=== PATIENT | male | born 1940 | race Caucasian/White ===

== ENCOUNTER 2017-07-26 09:25 | Inpatient (IN) | payer MEDICARE, MEDICAID ==
[2017-07-26] VITALS (11 sets, daily range): BP systolic 113–147; BP diastolic 58–73; PULSE 53–64; RESP 15–18; TEMP 97.5–98.9; O2SAT 94–99
[~2017-07-26] VITALS: Ht 180.3 cm; Wt 91.6 kg
[~2017-07-26 09:25] MED LIST: ASPI81TA81 PO; CALTTAB PO; FLUO60TA PO; GABA600T PO; LEVA500T PO; LOVA20TA PO; METO10TA PO; MSIR30 PO; NIAC250T3 PO; NIFE30TA8 PO; OXYB5TAB8 PO; PRIL20CA9 PO; VENTAER INH; ZENP1000 PO
[2017-07-26] MEDS ORDERED: SODIUM CHLORIDE 0.9% FLUSH 10 ML FLUSH IVF PRN (09:45)
[2017-07-26 10:17] LABS: ALBUMIN 3.1 GM/DL (3.4-5.0); AST (GOT) 12 U/L (15-37); BICARBONATE 22.9 MEQ/L (21.0-32.0); BLOOD UREA NITROGEN 38 MG/DL (7-18); CALCIUM 8.9 MG/DL (8.5-10.1); CHLORIDE 107 MEQ/L (98-107); CREATININE 1.27 MG/DL (0.60-1.30); GLOMERULAR FILTRATION RATE 55 ML/MIN (>89); GLUCOSE,RANDOM 120 MG/DL (74-106); SODIUM (NA) 140 MEQ/L (136-145)
[2017-07-26 10:18] LABS: ALT (GPT) 20 U/L (12-78)
[2017-07-26 10:20] LABS: ALKALINE PHOSPHATASE 84 U/L (45-117); TOTAL BILIRUBIN ADULT 0.2 MG/DL (0.2-1.0); TOTAL PROTEIN 6.7 GM/DL (6.4-8.2)
[2017-07-26 10:21] LABS: PROTHROMBIN TIME - PATIENT 10.6 SEC (9.8-11.6)
[2017-07-26 10:34] LABS: AUTOMATED NEUTROPHIL # 3.2 TH/MM3 (1.8-7.7); BASOPHIL # 0.1 TH/MM3 (0-0.2); BASOPHIL % 1.2 % (0.0-2.0); EOSINOPHIL # 0.1 TH/MM3 (0-0.4); EOSINOPHIL % 1.9 % (0.0-4.0); HEMATOCRIT 23.7 % (39.0-51.0); HEMOGLOBIN 7.5 GM/DL (13.0-17.0); LYMPH % 24.6 % (9.0-44.0); LYMPHOCYTE # 1.2 TH/MM3 (1.0-4.8); MEAN CELL VOLUME 74.6 FL (80.0-100.0); MEAN CORPUSCULAR HEMOGLOBIN 23.5 PG (27.0-34.0); MEAN CORPUSCULAR HGB CONC 31.6 % (32.0-36.0); MEAN PLATELET VOLUME 9.3 FL (7.0-11.0); MONO % 9.3 % (0.0-8.0); MONOCYTE # 0.5 TH/MM3 (0-0.9); PLATELET COUNT 221 TH/MM3 (150-450); RED BLOOD COUNT 3.17 MIL/MM3 (4.50-5.90); RED CELL DISTRIBUTION WIDTH 17.3 % (11.6-17.2); WHITE BLOOD COUNT 5.1 TH/MM3 (4.0-11.0)
[2017-07-26] MEDS ORDERED: SODIUM CHLOR 0.9% 250 ML INJ 250 ML IV ONE (11:30)
--- NOTE | 2017-07-26 11:39 | EKG ---
Date Performed: 07/26/2017 Time Performed: 09:38:48 PTAGE: 77 years EKG: SINUS BRADYCARDIA RIGHT BUNDLE BRANCH BLOCK Since the previous tracing, no significant russell ge noted ABNORMAL ECG PREVIOUS TRACING : 12/16/2015 @17.58 DOCTOR: Brodie Andrews Interpretating Date/Time 07/26/2017 16:04:12
--- NOTE | 2017-07-26 11:43 | PD ---
HPI Chief Complaint: Abdominal Pain Time Seen by Provider: 09:35 Travel History International Travel<30 days: No Contact w/Intl Traveler<30days: No Traveled to known affect area: No History of Present Illness HPI This is a 77-year-old male with history of dementia, acute kidney injury, diabetes mellitus, prostate cancer, pancreatic neoplasm, who presents today with history that he was told to come here for transfusion. Apparently he had blood work done by his primary care physician who we cannot recall her name, who told him that he needed to come here to have a blood transfusion. Apparently he had 2 separate blood draws which confirmed that he was anemic. He was unsure of the number. He states that he has been having dark stools. When asked if he had provided a stool sample or had a rectal examination, patient states he refused because he did not want to know if there was blood in there or not. When asked if he would provide us with a sample he stated now. He is amenable to transfusion. He states that he knows that he could possibly have something that is bad however does not wish to know about it at this point. PFSH Past Medical History Hx Anticoagulant Therapy: Yes (ASPRIN 81MG DAILY) Alzheimer's Disease: Yes Arthritis: Yes Asthma: No Anxiety: Yes Depression: Yes Cancer: Yes (PROSTATE) Cardiovascular Problems: Yes High Cholesterol: Yes Chemotherapy: Yes COPD: No Cerebrovascular Accident: Yes Diabetes: Yes Patient Takes Glucophage: No Diminished Hearing: Yes (TIMBI-SHA SHOSHONE BOTH EARS) Endocrine: No Gastrointestinal Disorders: Yes (ABD HERNIA X 2 AREA'S NO SURGERY) GERD: Yes Genitourinary: Yes Hiatal Hernia: Yes (NO SURGERY) Hypertension: Yes Musculoskeletal: Yes (R LEG PAIN/ WALKER TO AMBULATE AT HOME) Neurologic: Yes (NEUROPATHY) Psychiatric: Yes Sleep Apnea: No Thyroid Disease: No Past Surgical History Abdominal Surgery: Yes (EXPLOR LAP) Cholecystectomy: Yes Genitourinary Surgery: Yes (PROSTATE REMOVED R/T CANCER) Prostatectomy: Yes (R/T CA) Other Surgery: Yes (SPINTER MUSCLE RELACED) Social History Alcohol Use: No Tobacco Use: No (quit 50 years ago) Substance Use: No Allergies-Medications (Allergen,Severity, Reaction): Coded Allergies: shrimp (Unverified Allergy, Severe, EYES SWELL, 10/02/16) strawberry (Unverified Allergy, Severe, EYES SWELLING, 10/02/16) Reported Meds & Prescriptions Reported Meds & Active Scripts Active Ventolin Hfa 18 GM Inh (Albuterol Sulfate) 90 Mcg/Act Aer 2 Puff INH Q4H PRN Levaquin (Levofloxacin) 500 Mg Tab 500 Mg PO DAILY 7 Days Nifedipine ER 24 HR (Nifedipine) 30 Mg Tab 30 Mg PO BID Metoclopramide (Metoclopramide HCl) 10 Mg Tab 10 Mg PO ACHS Reported Aspir-81 (Aspirin) 81 Mg Tabdr 81 Mg PO HS Morphine IR (Morphine Sulfate) 30 Mg Tab 30 Mg PO TID Caltrate 600+D (Calcium Carbonate-Cholecalciferol) 600-800 Mg-Unit Tab 1 Tab PO DAILY Zenpep (Pancrelipase) 10,000-34,000-55,000 Units Cap 2 Cap PO TIDPC Gabapentin 600 Mg Tab 600 Mg PO BID Fluoxetine (Fluoxetine HCl) 60 Mg Tab 60 Mg PO DAILY Prilosec (Omeprazole) 20 Mg Cap 20 Mg PO DAILY Ditropan (Oxybutynin Chloride) 5 Mg Tab 5 Mg PO HS Niacin 250 Mg Tab 250 Mg PO HS Lovastatin 20 Mg Tab 20 Mg PO DAILY Review of Systems ROS Limitations: Poor Historian Except as stated in HPI: all other systems reviewed are Neg HENT: No: Headaches, Lightheadedness, Neck Pain Cardiovascular: No: Chest Pain or Discomfort, Palpitations, Tachycardia Respiratory: No: Cough, Shortness of Breath Gastrointestinal: Positive: Other, No: Nausea, Vomiting, Diarrhea, Abdominal Pain Genitourinary: No: Dysuria (Reported dark stools), Hematuria Neurologic: No: Weakness, Dizziness, Headache Physical Exam Narrative GENERAL: Well-nourished, well-developed patient, in no acute respiratory distress.. SKIN: Focused skin assessment warm/dry. HEAD: Normocephalic/atraumatic. EYES: No scleral icterus. No injection or drainage. Pale conjunctiva. NECK: Supple, trachea midline. CARDIOVASCULAR: Sinus bradycardia without obvious murmurs. RESPIRATORY: Breath sounds equal bilaterally. No accessory muscle use. GASTROINTESTINAL: Abdomen soft, non-tender, nondistended. No rebound or guarding. MUSCULOSKELETAL: No cyanosis, or edema. Patient does have pale palms. BACK: Chronic back pain. Patient states this is not new. No obvious CVA tenderness. NEUROLOGICAL: Awake and mildly confused. Cranial nerves II through XII intact. Motor grossly within normal limits. Five out of 5 muscle strength in all muscle groups. Normal speech. Data Data Last Documented VS Vital Signs Date Time Temp Pulse Resp B/P (MAP) Pulse Ox O2 Delivery O2 Flow Rate FiO2 07/26/17 09:31 97.9 56 16 123/58 (79) 98 Orders Orders Basic Metabolic Panel (Bmp) (07/26/17 09:35) Comprehensive Metabolic Panel (07/26/17 09:35) Lipase (07/26/17 09:35) Prothrombin Time / Inr (Pt) (07/26/17 09:35) Act Partial Throm Time (Ptt) (07/26/17 09:35) Type And Screen (07/26/17 09:35) Ecg Monitoring (07/26/17 09:35) Iv Access Insert/Monitor (07/26/17 09:35) Oximetry (07/26/17 09:35) Sodium Chloride 0.9% Flush (Ns Flush) (07/26/17 09:45) Complete Blood Count With Diff (07/26/17 10:13) Electrocardiogram (07/26/17 09:38) Red Blood Cells (Rbc) (07/26/17 11:26) Blood Product Administration (07/26/17 11:26) Sodium Chlor 0.9% 250 Ml Inj (Ns 250 Ml (07/26/17 11:30) Place In Observation (07/26/17 ) Vital Signs (Adult) RENETTA.Q4H (07/26/17 11:52) Resp Oxygen Erickson C Titrat 1-4 L (07/26/17 ) Sodium Chloride 0.9% Flush (Ns Flush) (07/26/17 12:00) Sodium Chloride 0.9% Flush (Ns Flush) (07/26/17 21:00) Admit Order (Ed Use Only) (07/26/17 12:15) Labs Laboratory Tests Test 07/26/17 09:51 White Blood Count 5.1 TH/MM3 Red Blood Count 3.17 MIL/MM3 Hemoglobin 7.5 GM/DL Hematocrit 23.7 % Mean Corpuscular Volume 74.6 FL Mean Corpuscular Hemoglobin 23.5 PG Mean Corpuscular Hemoglobin Concent 31.6 % Red Cell Distribution Width 17.3 % Platelet Count 221 TH/MM3 Mean Platelet Volume 9.3 FL Neutrophils (%) (Auto) 63.0 % Lymphocytes (%) (Auto) 24.6 % Monocytes (%) (Auto) 9.3 % Eosinophils (%) (Auto) 1.9 % Basophils (%) (Auto) 1.2 % Neutrophils # (Auto) 3.2 TH/MM3 Lymphocytes # (Auto) 1.2 TH/MM3 Monocytes # (Auto) 0.5 TH/MM3 Eosinophils # (Auto) 0.1 TH/MM3 Basophils # (Auto) 0.1 TH/MM3 CBC Comment DIFF FINAL Differential Comment Prothrombin Time 10.6 SEC Prothromb Time International Ratio 1.0 RATIO Activated Partial Thromboplast Time 24.3 SEC Blood Urea Nitrogen 38 MG/DL Creatinine 1.27 MG/DL Random Glucose 120 MG/DL Total Protein 6.7 GM/DL Albumin 3.1 GM/DL Calcium Level 8.9 MG/DL Alkaline Phosphatase 84 U/L Aspartate Amino Transf (AST/SGOT) 12 U/L Alanine Aminotransferase (ALT/SGPT) 20 U/L Total Bilirubin 0.2 MG/DL Sodium Level 140 MEQ/L Potassium Level 4.2 MEQ/L Chloride Level 107 MEQ/L Carbon Dioxide Level 22.9 MEQ/L Anion Gap 10 MEQ/L Estimat Glomerular Filtration Rate 55 ML/MIN Lipase 221 U/L MDM Medical Decision Making Medical Screen Exam Complete: Yes Emergency Medical Condition: Yes Differential Diagnosis Pancytopenia versus GI bleed versus anemia of chronic inflammation Narrative Course 77-year-old male with a history of pancreatic neoplasm, chronic back pain, diabetes mellitus, hypertension, acute kidney injury, who presents here with complaints of being told to come for transfusion. Patient had outpatient blood work done x2 episodes. Showed anemia. Patient does give history of dark stools. He is not allowing us to do a stool study at this point. I have ordered 2 units of packed red blood cells. He will be admitted under observation for to the RTU for transfusion. Anticipate he will be discharged in less than 24 hours. Diagnosis Primary Impression: Anemia Additional Impressions: Suspected GI bleed History of diabetes mellitus History of pancreatic neoplasm History of prostate cancer History of depression Admitting Information Admitting Physician Requests: Observation Hudson Reina MD Jul 26, 2017 11:43
--- NOTE | 2017-07-26 11:52 | HHI.HP ---
[facility] Service Family Medicine Primary Care Physician Unknown Admission Diagnosis Diagnoses: International Travel<30 Days: No Contact w/Intl Traveler<30days: No Known Affected Area: No History of Present Illness Mr. Yepez is a 77 y/o M presenting at the request of his PCP for anemia. Patient states that his physician, unknown physician at [facility], tested his hemoglobin this morning and sent him to the ED. He endorses having black stools for the last week with diarrhea over the last year. He denies any BRBPR, hematemesis, presyncope, palpitations, or chest pain. He denies a history of GI bleeds and has only had one colonoscopy that was benign per his report. He is refusing any further evaluation at this time for the bleeding including colonoscopy, sigmoidoscopy, or Hemoccult testing. He has been diagnosed with prostate and pancreatic cancer that he currently is not seeking treatment for. Otherwise he has no complaints and denies any fevers, chills, chest pain, SOB, ABD pain, NVD, or calf tenderness. He is a resident of [facility] and was sent by a physician that evaluated him there. He is unable to name the physician or give a detailed history as he has been diagnosed with Alzheimer's dementia. [facility] was called for further history. Per their report, patient was sent for further evaluation by Ms. Mica Cardona ([place] for Dr. Osman) for a low hemoglobin. His nurse states that "nothing has been out of the ordinary for the past week" and she is unsure otherwise why he was sent for evaluation. She was able to confirm his daily medications, but otherwise had no further history. Ms. Cardona contacted at [phone] to discuss the patient and confirms request for evaluation of anemia. She states that at [facility], patient was found to have a hemoglobin of 7.1 on Saturday. She then ordered a stat hemoglobin to be completed at an outpatient lab and was found to be 7.0. Once results was obtained, she referred patient to the ED for further evaluation. She confirms the limited medical history and daily medications. (Shane Lindo MD R2) Review of Systems ROS Limitations: Clinical Condition (Alzheimer's Dementia ) Constitutional: COMPLAINS OF: Chills, DENIES: Fever Eyes: DENIES: Diplopia, Double Vision Ears, nose, mouth, throat: DENIES: Throat pain, Running Nose Respiratory: DENIES: Cough, Shortness of breath Cardiovascular: DENIES: Chest pain, Palpitations, Syncope Gastrointestinal: COMPLAINS OF: Black stools (1 week ), Diarrhea (1 year ), DENIES: Abdominal pain, Bloody stools, Constipation, Nausea, Vomiting Genitourinary: DENIES: Hematuria, Dysuria Musculoskeletal: COMPLAINS OF: Joint pain (Back pain - chronic ), DENIES: Muscle aches Integumentary: DENIES: Rash Hematologic/lymphatic: DENIES: Lymphadenopathy Neurologic: DENIES: Headache Psychiatric: COMPLAINS OF: Depression, DENIES: Mood changes (Shane Lindo MD R2) Past Family Social History Past Medical History Unable to obtain history from patient. Per chart review and ER sign out: Alzheimers Dementia HTN HPLD Depression T2DM Prostate malignancy Pancreatic tail malignancy Past Surgical History Patient unable to provide history Per chart review and ED signout: Exploratory laparotomy Prostate removal (Shane Lindo MD R2) Allergies: Coded Allergies: shrimp (Unverified Allergy, Severe, EYES SWELL, 10/02/16) strawberry (Unverified Allergy, Severe, EYES SWELLING, 10/02/16) Family History Patient unable to provide full history Per chart review: No significant family medical history reported Social History Per chart review: Patient is currently a resident of [facility] for the last 3 months. Denies any alcohol or substance abuse history Previously a pack a day smoker, however quit approximately 50 years ago per patient report (Shane Lindo MD R2) Physical Exam Vital Signs Vital Signs Date Time Temp Pulse Resp B/P (MAP) Pulse Ox O2 Delivery O2 Flow Rate FiO2 07/26/17 09:31 97.9 56 16 123/58 (79) 98 Physical Exam GENERAL: Elderly male lying in bed in no acute distress. SKIN: Warm and dry. No rash. HEENT: Atraumatic, normocephalic with extraocular motions intact. No rhinorrhea. No visible lymphadenopathy or jugulovenous distension appreciated. CARDIOVASCULAR: Bradycardic rate and regular rhythm without obvious murmurs, gallops, or rubs. 2+ pulses in all four extremities. RESPIRATORY: Clear to auscultation bilaterally with no crackles, wheezes, or rhonchi. No increased work of breathing. GASTROINTESTINAL: Abdomen soft, non-tender, nondistended with positive bowel sounds. Large abdominal hernia appreciated along the midline with reducible bowel. No masses appreciated. MUSCULOSKELETAL: No cyanosis or edema. No calf tenderness. Patient endorses having chronic back pain, negative to palpation without obvious abnormalities. No CVA tenderness. NEURO/PSYCH: Neurological exam afocal. Patient is awake and alert. Patient endorses having history of dementia and is therefore appropriately answering questions intermittently. Patient endorses having depressive symptoms, but denies any suicidal/homicidal ideations. Laboratory Laboratory Tests Test 07/26/17 09:51 White Blood Count 5.1 Red Blood Count 3.17 Hemoglobin 7.5 Hematocrit 23.7 Mean Corpuscular Volume 74.6 Mean Corpuscular Hemoglobin 23.5 Mean Corpuscular Hemoglobin Concent 31.6 Red Cell Distribution Width 17.3 Platelet Count 221 Mean Platelet Volume 9.3 Neutrophils (%) (Auto) 63.0 Lymphocytes (%) (Auto) 24.6 Monocytes (%) (Auto) 9.3 Eosinophils (%) (Auto) 1.9 Basophils (%) (Auto) 1.2 Neutrophils # (Auto) 3.2 Lymphocytes # (Auto) 1.2 Monocytes # (Auto) 0.5 Eosinophils # (Auto) 0.1 Basophils # (Auto) 0.1 CBC Comment DIFF FINAL Differential Comment Prothrombin Time 10.6 Prothromb Time International Ratio 1.0 Activated Partial Thromboplast Time 24.3 Blood Urea Nitrogen 38 Creatinine 1.27 Random Glucose 120 Total Protein 6.7 Albumin 3.1 Calcium Level 8.9 Alkaline Phosphatase 84 Aspartate Amino Transf (AST/SGOT) 12 Alanine Aminotransferase (ALT/SGPT) 20 Total Bilirubin 0.2 Sodium Level 140 Potassium Level 4.2 Chloride Level 107 Carbon Dioxide Level 22.9 Anion Gap 10 Estimat Glomerular Filtration Rate 55 Lipase 221 (Shane Lindo MD R2) Result Diagram: 07/26/1795007/26/17 09 Caprini VTE Risk Assessment Caprini VTE Risk Assessment: Mod/High Risk (score >= 2) Caprini Risk Assessment Model Point Value = 1 Point Value = 2 Point Value = 3 Point Value = 5 Age 41-60 Minor surgery BMI > 25 kg/m2 Swollen legs Varicose veins or History of unexplained or recurrent spontaneous Oral contraceptives or hormone replacement Sepsis (< 1 month) Serious lung disease, including pneumonia (< 1 month) Abnormal pulmonary function Acute myocardial infarction Congestive heart failure (< 1 month) History of inflammatory bowel disease Medical patient at bed rest Age 61-74 Arthroscopic surgery Major open surgery (> 45 min) Laparoscopic surgery (> 45 min) Malignancy Confined to bed (> 72 hours) Immobilizing plaster cast Central venous access Age >= 75 History of VTE Family history of VTE Factor V Leiden Prothrombin [id number] Lupus anticoagulant Anticardiolipin antibodies Elevated serum homocysteine Heparin-induced thrombocytopenia Other congenital or acquired thrombophilia Stroke (< 1 month) Elective arthroplasty Hip, pelvis, or leg fracture Acute spinal cord injury (< 1 month) Prophylaxis Regimen Total Risk Factor Score Risk Level Prophylaxis Regimen 0-1 Low Early ambulation 2 Moderate Order ONE of the following: *Sequential Compression Device (SCD) *Heparin 5000 units SQ BID 3-4 Higher Order ONE of the following medications: *Heparin 5000 units SQ TID *Enoxaparin/Lovenox 40 mg SQ daily (WT < 150 kg, CrCl > 30 mL/min) *Enoxaparin/Lovenox 30 mg SQ daily (WT < 150 kg, CrCl > 10-29 mL/min) *Enoxaparin/Lovenox 30 mg SQ BID (WT < 150 kg, CrCl > 30 mL/min) AND/OR *Sequential Compression Device (SCD) 5 or more Highest Order ONE of the following medications: *Heparin 5000 units SQ TID (Preferred with Epidurals) *Enoxaparin/Lovenox 40 mg SQ daily (WT < 150 kg, CrCl > 30 mL/min) *Enoxaparin/Lovenox 30 mg SQ daily (WT < 150 kg, CrCl > 10-29 mL/min) *Enoxaparin/Lovenox 30 mg SQ BID (WT < 150 kg, CrCl > 30 mL/min) AND *Sequential Compression Device (SCD) (Shane Lindo MD R2) Assessment and Plan Assessment and Plan Mr. Yepez is a 77-year-old male with history of Alzheimer's dementia and multiple malignancies presenting with anemia likely secondary to GI bleeding. Code Status FULL CODE Discussed Condition With Dr. Reina, ED physician (Shane Lindo MD R2) Problem List: (1) Anemia ICD Codes: D64.9 - Anemia, unspecified Status: Acute Plan: -CBC: H/H 7.5/23.7 with MCV of 74.6 -Iron profile: Iron 14, TIBC 469, TIBC 3.0 -PT 10.6, INR 1.0, PTT 24.3 -Hemoccult-positive -Posttransfusion H/H ordered -Patient previously refusing GI workup, but would like to discuss options -GI consulted, appreciate recommendations Medications: -2 units PRBC ordered -Tylenol and Benadryl as needed for transfusion -Lasix 20 mg IV between units of blood -Protonix 40 mg IV twice daily (2) Dementia ICD Codes: F03.90 - Dementia Status: Chronic Plan: -Patient previously diagnosed with Alzheimer's dementia per [facility] staff -Patient not fully oriented during interview and is unable to give complete history -POA unknown per patient, but does list a Son that he is semi-estranged from. Offered to reach out to him, patient declined. 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 However, most recent A1c was less than 5.5 while patient was not being treated for diabetes. She is uncertain of his diagnosis and is currently not treated per her report. Medications: -Sliding scale protocol canceled. (6) HTN (hypertension) ICD Codes: I10 - Essential (primary) hypertension Status: Chronic Plan: Medications: -Continue home Atenolol 25mg QD, Amlodipine 10mg QD (7) Hyperlipidemia ICD Codes: E78.5 - Hyperlipidemia, unspecified Status: Chronic Plan: Medications: -Home statin not available, Pravastatin 20mg HS ordered as alternative (8) Chronic back pain ICD Codes: M54.9 - Dorsalgia, unspecified; G89.29 - Other chronic pain Status: Chronic Plan: Medications: -Continue home Tramadol 50mg Q8H as needed for pain (9) Depression ICD Codes: F32.9 - Major depressive disorder, single episode, unspecified Status: Chronic Plan: Medications: -Continue home Sertraline 100mg HS (10) DVT prophylaxis Status: Acute Plan: -Medical prophylaxis not indicated due to anemia/possible GI bleed -SCDs (11) Nutrition, metabolism, and development symptoms ICD Codes: R63.8 - Other symptoms and signs concerning food and fluid intake Status: Acute Plan: -Fluids: Tolerating oral fluid, will receive 2 units PRBC -Diet: Regular diet as tolerated -Electrolytes: WNL, continue to monitor -Physical therapy ordered -Prophylaxis: Clonidine as needed for blood pressure greater than 180/110, Zofran as needed for nausea/vomiting, Benadryl as needed for itching during transfusion, Tylenol/tramadol as needed for pain, Duoneb as needed for SOB/ Wheezing (Shane Lindo MD R2) Problem List: (1) Anemia ICD Codes: D64.9 - Anemia, unspecified Status: Acute Plan: -CBC: H/H 7.5/23.7 with MCV of 74.6 -Iron profile: Iron 14, TIBC 469, TIBC 3.0 -PT 10.6, INR 1.0, PTT 24.3 -Hemoccult-positive -Posttransfusion H/H ordered -Patient previously refusing GI workup, but would like to discuss options -GI consulted, appreciate recommendations Medications: -2 units PRBC ordered -Tylenol and Benadryl as needed for transfusion -Lasix 20 mg IV between units of blood -Protonix 40 mg IV twice daily (2) Dementia ICD Codes: F03.90 - Dementia Status: Chronic Plan: -Patient previously diagnosed with Alzheimer's dementia per [facility] nursing staff -Patient not fully oriented during interview and is unable to give complete history -POA unknown per patient, but does list a Son that he is semi-estranged from. Offered to reach out to him, patient declined. 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 However, most recent A1c was less than 5.5 while patient was not being treated for diabetes. She is uncertain of his diagnosis and is currently not treated per her report. Medications: -Sliding scale protocol canceled. (6) HTN (hypertension) ICD Codes: I10 - Essential (primary) hypertension Status: Chronic Plan: Medications: -Continue home Atenolol 25mg QD, Amlodipine 10mg QD (7) Hyperlipidemia ICD Codes: E78.5 - Hyperlipidemia, unspecified Status: Chronic Plan: Medications: -Home statin not available, Pravastatin 20mg HS ordered as alternative (8) Chronic back pain ICD Codes: M54.9 - Dorsalgia, unspecified; G89.29 - Other chronic pain Status: Chronic Plan: Medications: -Continue home Tramadol 50mg Q8H as needed for pain (9) Depression ICD Codes: F32.9 - Major depressive disorder, single episode, unspecified Status: Chronic Plan: Medications: -Continue home Sertraline 100mg HS (10) DVT prophylaxis Status: Acute Plan: -Medical prophylaxis not indicated due to anemia/possible GI bleed -SCDs (11) Nutrition, metabolism, and development symptoms ICD Codes: R63.8 - Other symptoms and signs concerning food and fluid intake Status: Acute Plan: -Fluids: Tolerating oral fluid, will receive 2 units PRBC -Diet: Regular diet as tolerated -Electrolytes: WNL, continue to monitor -Physical therapy ordered -Prophylaxis: Clonidine as needed for blood pressure greater than 180/110, Zofran as needed for nausea/vomiting, Benadryl as needed for itching during transfusion, Tylenol/tramadol as needed for pain, Duoneb as needed for SOB/ Wheezing See the residents documentation for details. I saw and evaluated the patient regarding the [place] portions of this evaluation and agree with the residents findings and plans as written. Parts of this note were created using [employer] voice recognition software program. While efforts were made to correct any mistakes made by this software, some mistakes, errors, and omissions may remain in the final note that were not caught when the note was originally created. Plan of care was discussed and agreed upon with the patient as specifically documented in the above note. An opportunity to ask questions with explanation was provided. Patient voiced understanding on all information reviewed and discussed. (Deon Ornelas MD) Problem Qualifiers (1) Anemia: Qualified Codes: D64.9 - Anemia, unspecified (2) Dementia: Qualified Codes: G30.9 - Alzheimer's disease, unspecified; F02.80 - Dementia in other diseases classified elsewhere without behavioral disturbance (3) Diabetes mellitus: Qualified Codes: E11.8 - Type 2 diabetes mellitus with unspecified complications (4) HTN (hypertension): Qualified Codes: I10 - Essential (primary) hypertension (5) Hyperlipidemia: Qualified Codes: E78.5 - Hyperlipidemia, unspecified (6) Chronic back pain: Qualified Codes: M54.5 - Low back pain; G89.29 - Other chronic pain (7) Depression: Qualified Codes: F33.2 - Major depressive disorder, recurrent severe without psychotic features Shane Lindo MD R2 Jul 26, 2017 11:52 Deon Ornelas MD Jul 29, 2017 10:56
[2017-07-26] MEDS ORDERED: SODIUM CHLORIDE 0.9% FLUSH 10 ML FLUSH IV FLUSH PRN ×2 (12:00→12:30)
[2017-07-26] MEDS ORDERED: diphenhydrAMINE HCL 25 MG CAP PO PRN (12:30)
[2017-07-26] MEDS ORDERED: ACETAMINOPHEN 325 MG TAB PO PRN ×2 (12:30→14:30)
[2017-07-26] MEDS ORDERED: FUROSEMIDE 20 MG/2 ML VIAL IV PUSH ONE (12:50)
[2017-07-26] MEDS ORDERED: ONDANSETRON ODT 4 MG TAB PO PRN (13:00)
[2017-07-26] MEDS ORDERED: GLIM1TAB PO (13:10)
[2017-07-26] MEDS ORDERED: ATEN25TA PO (13:10)
[2017-07-26] MEDS ORDERED: TRAM50TA PO (13:10)
[2017-07-26] MEDS ORDERED: MELO15TA20 PO (13:10)
[2017-07-26] MEDS ORDERED: AMLO10TA2 PO (13:10)
[2017-07-26] MEDS ORDERED: OMEP40CA2 PO (13:10)
[2017-07-26 13:43] LABS: IRON (FE) 14 MCG/DL (65-175); TOTAL IRON BINDING CAPACITY 469 MCG/DL (250-450)
[2017-07-26 13:45] LABS: TROPONIN I LESS THAN 0.02 NG/ML (0.02-0.05)
[2017-07-26] MEDS ORDERED: GLUCAGON 1 MG/ML VIAL OTHER PRN (14:15)
[2017-07-26] MEDS ORDERED: DEXTROSE 50% IN WATER 50 ML VIAL(D50) IV PUSH PRN (14:15)
--- NOTE | 2017-07-26 14:39 | RADRPT ---
EXAM DATE: 07/26/2017 1:19 PM EDT AGE/SEX: 77 years / Male INDICATIONS: Cough, weakness, anemia, suspected GI bleed CLINICAL DATA: This is the patient's initial encounter. Patient reports that signs and symptoms have been present for 4 - 6 days and indicates a pain score of 0/10. MEDICAL/SURGICAL HISTORY: Hypertension. Diabetes mellitus type II. anemia, blood transfusion . abdominal surgery to remove mass COMPARISON: [facility], CHEST SINGLE AP, 01/09/2016. [facility], CT ABDOMEN & PELVIS W/O CONTRAST, 01/09/2016 . [facility], CHEST SINGLE AP, 12/25/2015. . FINDINGS: Portable AP view of the chest demonstrates a normal size cardiac silhouette with suspected hiatal her zackary. There is stable streaky linear opacities at the right lung base. No pleural effusion, airspace c onsolidation, or pneumothorax is identified. The bones and soft tissues demonstrate no acute finding. CONCLUSION: 1. No acute cardiopulmonary abnormality is identified. There is stable linear scar at the right lung base. 2. Hiatal hernia. Electronically signed by: Bebeto Jones MD 07/26/2017 1:22 PM EDT
[2017-07-26] MEDS ORDERED: RESP: ALBUTEROL 2.5 MG/IPRATROPIUM 0.5 MG NEB (PRN) NEB (14:45)
[2017-07-26] MEDS ORDERED: cloNIDine HCL 0.1 MG TAB PO PRN (14:45)
--- NOTE | 2017-07-26 15:04 | PD.CONS ---
HPI History of Present Illness This is a 77 year old moderate obese male who was admitted to the hospital on 07/26/2017 with symptoms of melena. Onset approximately 1 week according to the record and patient does note a change in his stools over the past week. Patient states no nausea or vomiting, dysphagia or dyspepsia, no dizziness or syncopal episodes. But does note some tired sensations especially during the daytime. Patient states diarrhea stools approximately 1 year ago but denies any current diarrhea. No family history of colon cancer no recent tobacco dependence or alcohol dependence or illicit drugs. Patient has history of Alzheimer's diagnosis and has been living in [facility] for the past 3 months according to the record. Patient is a fair to poor historian as far as timing and recent history of maintenance. Currently patient denies any abdominal pain. Patient states he has taken Zantac in the past and was recently placed back on it but states med has been ineffective. Labs show current hemoglobin 7.5, iron level 14, TIBC 469, and low iron saturation. LFTs show AST 12 ALT 20 , lipase normal at 221, INR 1. According to the record patient has history of GI bleed but patient is currently unaware. On exam patient has some epigastric tenderness to light palpation. Current chest x-ray shows hiatal hernia. (Lauren Diaz) PFSH Past Medical History Alzheimer's Per the record ,hypertension Depression Diabetes type 2 Prostate malignancy Pancreatic tail malignancy Past Surgical History Per the record exploratory laparotomy Prostatectomy (Lauren Diaz) Coded Allergies: shrimp (Unverified Allergy, Severe, EYES SWELL, 10/02/16) strawberry (Unverified Allergy, Severe, EYES SWELLING, 10/02/16) Medications Administered Medications Medications (Trade) Dose Ordered Sig/Tamela Route PRN Reason Start Time Stop Time Status Last Admin Dose Admin Sodium Chloride 250 ml @ 15 mls/hr ONCE ONCE IV 07/26/17 11:30 07/27/17 04:09 07/26/17 12:42 Family History No known family history of colon cancer Social History Smoked and drank alcohol in his younger years but quit in the late 60s to early 70s. 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 No acute cardiopulmonary abnormality is identified. There is stable linear scar at the right lung base. 2. Hiatal hernia. Laboratory Test 07/26/17 09:51 White Blood Count 5.1 TH/MM3 Red Blood Count 3.17 MIL/MM3 Hemoglobin 7.5 GM/DL Hematocrit 23.7 % Mean Corpuscular Volume 74.6 FL Mean Corpuscular Hemoglobin 23.5 PG Mean Corpuscular Hemoglobin Concent 31.6 % Red Cell Distribution Width 17.3 % Platelet Count 221 TH/MM3 Mean Platelet Volume 9.3 FL Neutrophils (%) (Auto) 63.0 % Lymphocytes (%) (Auto) 24.6 % Monocytes (%) (Auto) 9.3 % Eosinophils (%) (Auto) 1.9 % Basophils (%) (Auto) 1.2 % Neutrophils # (Auto) 3.2 TH/MM3 Lymphocytes # (Auto) 1.2 TH/MM3 Monocytes # (Auto) 0.5 TH/MM3 Eosinophils # (Auto) 0.1 TH/MM3 Basophils # (Auto) 0.1 TH/MM3 CBC Comment DIFF FINAL Differential Comment Prothrombin Time 10.6 SEC Prothromb Time International Ratio 1.0 RATIO Activated Partial Thromboplast Time 24.3 SEC Blood Urea Nitrogen 38 MG/DL Creatinine 1.27 MG/DL Random Glucose 120 MG/DL Total Protein 6.7 GM/DL Albumin 3.1 GM/DL Calcium Level 8.9 MG/DL Alkaline Phosphatase 84 U/L Aspartate Amino Transf (AST/SGOT) 12 U/L Alanine Aminotransferase (ALT/SGPT) 20 U/L Total Bilirubin 0.2 MG/DL Sodium Level 140 MEQ/L Potassium Level 4.2 MEQ/L Chloride Level 107 MEQ/L Carbon Dioxide Level 22.9 MEQ/L Anion Gap 10 MEQ/L Estimat Glomerular Filtration Rate 55 ML/MIN Iron Level 14 MCG/DL Total Iron Binding Capacity 469 MCG/DL Percent Iron Saturation 3.0 % Troponin I LESS THAN 0.02 NG/ML Lipase 221 U/L Physical Examination HEENT: Overweight, normocephalic; atraumatic; no jaundice. Speech is clear NECK: Neck is supple, obese CHEST: Chest is clear to auscultation and percussion. No audible rhonchi or wheezing CARDIAC: Regular rate and rhythm ABDOMEN: Round, soft, obese, mild tenderness to light palpation, no hepatosplenomegaly; bowel sounds are present in all four quadrants. EXTREMITIES: No clubbing, cyanosis, or edema. SKIN: Pale, no rash; no jaundice. 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 Requiring transfusion on admission to the hospital History of Alzheimer's, fair to poor historian Iron deficiency anemia. Labs show iron level 14, TIBC 469, and low oxygen saturation 77-year-old overweight male admitted to the hospital from [facility] on 2017 with melena stools 1 week. Patient notes diarrhea approximately 1 year ago and according to the record history of GI bleed. Patient states previous colonoscopy but will never agree to another one. No family history of colon cancer to his knowledge, no recent tobacco or alcohol consumption. Patient states he has taken Zantac in the past and was recently restarted on it but states mid appears to be ineffective although he denies any nausea vomiting or dyspepsia. Plan N.p.o. Consent for EGD in a.m. Antiemetics PPI Ferrous sulfate Monitor for bowel regimen and reflux precautions Continue to monitor hemoglobin and transfuse as needed Supportive care Further recommendations to follow after EGD Patient was seen per myself and Dr. Nguyen, note was written on his behalf (Lauren Diaz) Physician Comments Seen and examined with Kassandra, plan as above, will proceed with EGD. Will check previous records. Thank you for the consult. (Jerel Nguyen MD) Lauren Diaz Jul 26, 2017 15:04 Jerel Nguyen MD Jul 27, 2017 11:57
[2017-07-26 15:13] LABS: CHOLESTEROL 122 MG/DL (120-200); TRIGLYCERIDES 88 MG/DL (42-150)
[2017-07-26 15:15] LABS: CHOLESTEROL/ HDL RATIO 2.91 RATIO; HDL CHOLESTEROL 41.8 MG/DL (40.0-60.0); LDL CHOLESTEROL 63 MG/DL (0-99)
[2017-07-26] MEDS ORDERED: PANTOPRAZOLE SODIUM 40 MG VIAL IV PUSH SCH (15:15)
[2017-07-26] MEDS: PANTOPRAZOLE SODIUM 40 MG VIAL IV PUSH SCH (15:36)
[2017-07-26] MEDS: FERROUS SULFATE 325 MG (65 MG ELEMENTAL IRON) TAB PO SCH (15:37)
[2017-07-26 15:50] LABS: HEMOGLOBIN A1C 5.8 % (4.3-6.0)
[2017-07-26 16:39] LABS: BILIRUBIN, URINE NEG (NEG); BLOOD, URINE NEG (NEG); GLUCOSE,URINE NEG (NEG); KETONE, URINE NEG (NEG); MUCUS URINE FEW /lpf (OCC); NITRITE,URINE NEG (NEG); URINE COLOR LIGHT-YELLOW (YELLW/STRAW); URINE LEUKOCYTE ESTERASE NEG (NEG)
[2017-07-26] MEDS: GABAPENTIN 300 MG CAP PO SCH (16:55)
[2017-07-26] MEDS ORDERED: INSULIN ASPART SUPPLEMENTAL SCALE SQ SCH (17:00)
[2017-07-26] MEDS ORDERED: SODIUM CHLORIDE 0.9% FLUSH 10 ML FLUSH IV FLUSH SCH (21:00)
[2017-07-26 22:30] LABS: HEMATOCRIT 27.7 % (39.0-51.0)
[2017-07-26] MEDS: PRAVASTATIN SOD 20 MG TAB PO SCH (22:57)
[2017-07-26] MEDS: SODIUM CHLORIDE 0.9% FLUSH 10 ML FLUSH IV FLUSH SCH (22:58)
[2017-07-26] MEDS: SERTRALINE HCL 100 MG TAB PO SCH (22:58)
[2017-07-27] MEDS: PANTOPRAZOLE SODIUM 40 MG VIAL IV PUSH SCH ×2 (03:56→15:39)
[2017-07-27 04:18] VITALS: BP 115/62; PULSE 56; RESP 20; TEMP 97.6; O2SAT 94
[2017-07-27 04:55] LABS: AUTOMATED NEUTROPHIL # 3.3 TH/MM3 (1.8-7.7); BASOPHIL # 0.1 TH/MM3 (0-0.2); EOSINOPHIL # 0.3 TH/MM3 (0-0.4); EOSINOPHIL % 4.8 % (0.0-4.0); HEMATOCRIT 27.5 % (39.0-51.0); HEMOGLOBIN 9.1 GM/DL (13.0-17.0); LYMPH % 23.8 % (9.0-44.0); LYMPHOCYTE # 1.3 TH/MM3 (1.0-4.8); MEAN CORPUSCULAR HEMOGLOBIN 25.2 PG (27.0-34.0); MEAN CORPUSCULAR HGB CONC 33.2 % (32.0-36.0); MEAN PLATELET VOLUME 8.9 FL (7.0-11.0); MONO % 10.8 % (0.0-8.0); MONOCYTE # 0.6 TH/MM3 (0-0.9); NEUT % 59.6 % (16.0-70.0); PLATELET COUNT 208 TH/MM3 (150-450); RED BLOOD COUNT 3.61 MIL/MM3 (4.50-5.90); RED CELL DISTRIBUTION WIDTH 18.2 % (11.6-17.2); WHITE BLOOD COUNT 5.6 TH/MM3 (4.0-11.0)
[2017-07-27 05:14] LABS: ALBUMIN 2.9 GM/DL (3.4-5.0); AST (GOT) 11 U/L (15-37); BICARBONATE 25.7 MEQ/L (21.0-32.0); BLOOD UREA NITROGEN 29 MG/DL (7-18); CALCIUM 8.5 MG/DL (8.5-10.1); CHLORIDE 108 MEQ/L (98-107); CREATININE 1.18 MG/DL (0.60-1.30); GLOMERULAR FILTRATION RATE 60 ML/MIN (>89); GLUCOSE,RANDOM 90 MG/DL (74-106); SODIUM (NA) 142 MEQ/L (136-145)
[2017-07-27 05:16] LABS: ALT (GPT) 18 U/L (12-78)
[2017-07-27 05:18] LABS: ALKALINE PHOSPHATASE 81 U/L (45-117); TOTAL BILIRUBIN ADULT 0.5 MG/DL (0.2-1.0); TOTAL PROTEIN 6.4 GM/DL (6.4-8.2)
[2017-07-27] MEDS ORDERED: LACTATED RINGER'S 1000 ML IV PRN (06:30)
[2017-07-27] MEDS ORDERED: SODIUM CHLORID 0.9% 500 ML IV PRN (06:30)
[2017-07-27] MEDS ORDERED: POVIDONE IODINE 5% (ANTISEPSIS KIT) 4 APPLICATIONS EACH NARE PRN (06:30)
[2017-07-27] MEDS ORDERED: CHLORHEXIDINE GLUCONATE 2 % 1 PACK (2 CLOTHS) TOPICAL PRN (06:30)
[2017-07-27 07:44] VITALS: O2SAT 94
[2017-07-27 08:00] VITALS: BP 142/63; PULSE 57; RESP 20; TEMP 98.2; O2SAT 94
[2017-07-27] MEDS: GABAPENTIN 300 MG CAP PO SCH ×3 (09:40→16:53)
[2017-07-27] MEDS: OXYBUTYNIN CHLORIDE 5 MG TAB PO SCH (09:40)
[2017-07-27] MEDS: ATENOLOL 25 MG TAB PO SCH (09:40)
[2017-07-27] MEDS: SODIUM CHLORIDE 0.9% FLUSH 10 ML FLUSH IV FLUSH SCH ×2 (09:41→19:57)
[2017-07-27] MEDS: FERROUS SULFATE 325 MG (65 MG ELEMENTAL IRON) TAB PO SCH (09:41)
[2017-07-27] MEDS ORDERED: PROPOFOL 200 MG/20 ML AMP IV ONE (12:00)
[2017-07-27] MEDS ORDERED: ePHEDrine/NS 25 MG/5 ML SYRINGE IV ONE (12:00)
[2017-07-27] MEDS ORDERED: PHENYLEPH/NS 1000 MCG/10 ML SYR IV ONE (12:00)
[2017-07-27] MEDS ORDERED: LIDOCAINE HCL 1% PF 5 ML SYRINGE OTHER ONE (12:00)
--- NOTE | 2017-07-27 13:46 | GIPROC ---
[facility] [address] [facility]. [facility] [place], [address] EGD PROCEDURE REPORT EXAM DATE: 07/27/2017 PATIENT NAME: Arash Yepez MR #: [id number] BIRTHDATE: 1940 ATTENDING: Jerel Nguyen MD ORDER #: [id number] CLINICAL TRANSPLANT COORDINATOR: Shae Quintana and Mirna Lloyd STATUS: inpatient INDICATIONS: The patient is a 77 yr old male here for an EGD due to anemia PROCEDURE PERFORMED: EGD w/ biopsy MEDICATIONS: None and Per Anesthesia. TOPICAL ANESTHETIC: none CONSENT: The patient understands the risks and benefits of the procedure and understands that these risks include, but are not limited to: sedation, allergic reaction, infection, perforation and/or bleeding. Alternative means of evaluation and treatment include, among others: physical exam, x-rays, and/or surgical intervention. The patient elects to proceed with this endoscopic procedure. medical equipment was checked for proper function. Hand hygiene and appropriate measures for infection prevention was taken. After the risks, benefits and alternatives of the procedure were thoroughly explained, Informed consent was verified, confirmed and timeout was successfully executed by the treatment team. The patient was anesthetized with topical anesthesia and the Pentax [id number] endoscope was introduced through the mouth and advanced to the second portion of the duodenum. Retroflexion was performed and was normal The gastroscope was then slowly withdrawn and removed. ESOPHAGUS: A large hiatal hernia was noted. STOMACH: There was erythematous moderate gastritis in the gastric antrum. Multiple biopsies were performed using cold forceps. Sample sent for histology. DUODENUM: The duodenal mucosa appeared normal in the duodenal bulb, 2nd part duodenum, and 3rd part duodenum. ADVERSE EVENTS: There were no complications. IMPRESSIONS: 1. Large hiatal hernia 2. There was erythematous gastritis in the gastric antrum; multiple biopsies were performed 3. Normal duodenal mucosa in the duodenal bulb, 2nd part duodenum, and 3rd part duodenum 4. No evidence of active or recent bleeding. RECOMMENDATIONS: 1. Await biopsy results. Biopsy results will not be ready for 7-10 days. If you don't hear from us in two weeks, call our office for biopsy results. 2. Continue PPI 3. Colonoscopy, as outpatient, patient is refusing at this time. PATIENT CONDITION: stable DISPOSITION: Observation REPEAT EXAM: NONE Jerel Nguyen MD eSigned: Jerel Nguyen MD 07/27/2017 1:46 PM cc: PATIENT NAME: Arash Yepez MR#: [id number]
--- NOTE | 2017-07-27 14:11 | HHI.FPPN ---
Subjective Remarks Patient was seen and evaluated this morning. He was tearful and wanted to discuss end-of-life arrangements. He reports feeling better after receiving two units of blood. Patient denies chest pain, heart palpitations, shortness of breath, nausea/vomiting, diarrhea and constipation. All questions were answered. (Sejal Miller MD R1) Objective Vitals Vital Signs Date Time Temp Pulse Resp B/P (MAP) Pulse Ox O2 Delivery O2 Flow Rate FiO2 07/27/17 08:00 98.2 57 20 142/63 (89) 94 07/27/17 07:44 94 21 07/27/17 04:18 97.6 56 20 115/62 (79) 94 07/26/17 23:38 97.5 57 16 113/58 (76) 95 07/26/17 20:30 98.3 57 15 113/68 95 07/26/17 17:50 97.7 58 16 131/71 94 07/26/17 17:35 98.0 54 16 142/69 96 07/26/17 17:22 98.0 54 16 142/69 96 07/26/17 16:45 98.0 54 16 142/69 (93) 96 I/O 07/26/17 07/26/17 07/26/17 07/27/17 07/27/17 07/27/17 07:00 15:00 23:00 07:00 15:00 23:00 Intake Total 810 ml 100 ml Output Total 150 ml Balance 810 ml -50 ml Packed Cells 800 ml Blood Product IV Normal Saline Flush 10 ml Other 100 ml Output Urine Total 150 ml (Sejal Miller MD R1) Result Diagram: 07/27/17 0411 07/27/17 0411 Imaging Last Impressions Chest X-Ray 07/26/17 0000 Signed Impressions: CONCLUSION: 1. No acute cardiopulmonary abnormality is identified. There is stable linear scar at the right lung base. 2. Hiatal hernia. Objective Remarks GENERAL: Elderly male lying in bed in no acute distress. Tearful. SKIN: Warm and dry. No rash. HEENT: Atraumatic, normocephalic with extraocular motions intact. No rhinorrhea. No visible lymphadenopathy or JVD appreciated. CARDIOVASCULAR: Bradycardic rate and regular rhythm without obvious murmurs, gallops, or rubs. RESPIRATORY: Clear to auscultation bilaterally with no crackles, wheezes, or rhonchi. No increased work of breathing. GASTROINTESTINAL: Positive bowel sounds. Abdomen soft, non-tender, nondistended. Large abdominal hernia appreciated along the midline with reducible bowel. MUSCULOSKELETAL: No cyanosis or edema. No calf tenderness. NEURO/PSYCH: Neurological exam afocal. Patient is awake and alert. Patient endorses having history of dementia and is therefore appropriately answering questions intermittently. Patient endorses having depressive symptoms, but denies any suicidal/homicidal ideations. Medications and IVs Current Medications Medications (Trade) Dose Ordered Sig/Tamela Route Start Time Stop Time Status Last Admin (NS Flush) 2 ml UNSCH PRN IV FLUSH 07/26/17 12:30 07/27/17 03:56 (NS Flush) 2 ml BID IV FLUSH 07/26/17 21:00 07/27/17 09:41 (Zofran Odt) 4 mg Q6H PRN PO 07/26/17 13:00 07/26/17 16:55 (Tylenol) 650 mg Q4H PRN PO 07/26/17 12:30 (Benadryl) 25 mg Q4H PRN PO 07/26/17 12:30 (Ferrous Sulfate) 325 mg DAILY PO 07/26/17 13:00 07/27/17 09:41 (Tenormin) 25 mg DAILY PO 07/27/17 09:00 07/27/17 09:40 (Norvasc) 10 mg DAILY PO 07/27/17 09:00 07/27/17 09:40 (Pravachol) 20 mg HS PO 07/26/17 21:00 07/26/17 22:57 (Zoloft) 100 mg HS PO 07/26/17 21:00 07/26/17 22:58 (Neurontin) 600 mg TID PO 07/26/17 18:00 07/27/17 09:40 (Ditropan) 5 mg DAILY PO 07/27/17 09:00 07/27/17 09:40 (Ultram) 50 mg Q8H PRN PO 07/26/17 14:30 (Tylenol) 650 mg Q4H PRN PO 07/26/17 14:30 (Catapres) 0.1 mg Q6H PRN PO 07/26/17 14:45 (Duoneb Neb) 1 ampule Q6HR NEB PRN NEB 07/26/17 14:45 (Protonix Inj) 40 mg Q12H IV PUSH 07/26/17 16:00 07/27/17 03:56 Lactated Ringer's 1,000 ml @ 30 mls/hr Q24H PRN IV 07/27/17 06:30 07/30/17 06:29 Sodium Chloride 500 ml @ 30 mls/hr [id number] PRN IV 07/27/17 06:30 07/30/17 06:29 (Betadine 5% Antisepsis Kit) 1 applic CORRUGATOR OPERATOR HELPER PRN EACH NARE 07/27/17 06:30 07/30/17 06:29 (Chlorhexidine 2% Cloth) 3 pack CORRUGATOR OPERATOR HELPER PRN TOPICAL 07/27/17 06:30 07/30/17 06:29 (Sejal Miller MD R1) Urinary Catheter: No (Sejal Miller MD R1) Vascular Central Line Catheter: No (Sejal Miller MD R1) A/P Assessment and Plan Patient is a 77-year-old male with history of Alzheimer's dementia and multiple malignancies presenting with anemia likely secondary to GI bleeding. Discharge Planning Pending GI clearance. (Sejal Miller MD R1) Problem List: (1) Anemia ICD Codes: D64.9 - Anemia, unspecified Status: Acute Plan: On admission, patient found to have H/H 7.5/23.7 with MCV of 74.6. s/p 2 units PRBC. Post-transfusion H/H 9.0/27.7. Labs: * PT 10.6, INR 1.0, PTT 24.3. * Iron profile: Iron 14, TIBC 469, TIBC 3.0. Microbiology: * Hemoccult positive. Medications: * Ferrous Sulfate 325mg PO daily. Consults: * GI: EGD today. Patient refusing colonoscopy. Recommendations to follow. (2) Dementia ICD Codes: F03.90 - Dementia Status: Chronic Plan: Patient with history of Alzheimer's Dementia per [facility] nursing staff. POA unknown per patient, but does list a son, who he is semi-estranged from. Offered to reach out to him, patient declined. Patient to be Full Code as we are unable to trust his full decision-making capabilities at this time. (3) Malignancies ICD Codes: C80.1 - Malignant (primary) neoplasm, unspecified Status: Chronic Plan: Per chart review, patient with history of prostate and pancreatic tail malignancies. Patient reports he was previously on "hormone therapy" for prostate cancer. Patient refusing oncology workup and chemotherapy treatment of malignancies currently. 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 Medications: * Continue oxybutynin 5 mg PO daily. (5) Diabetes mellitus ICD Codes: E11.9 - Type 2 diabetes mellitus without complications Status: Resolved Plan: Patient with history of type 2 diabetes mellitus per fpc, however no reported medications. Labs on admission: * Glucose 120. * Hemoglobin A1c 5.8. * Lipid profile wnl. (6) HTN (hypertension) ICD Codes: I10 - Essential (primary) hypertension Status: Chronic Plan: Patient with history of Hypertension. Medications: * Continue home Atenolol 25mg PO daily, Amlodipine 10mg PO daily. (7) Hyperlipidemia ICD Codes: E78.5 - Hyperlipidemia, unspecified Status: Chronic Plan: Patient with history of hyperlipidemia. Lipid profile wnl. Medications: * Home statin not available, Pravastatin 20mg HS ordered as alternative. (8) Chronic back pain ICD Codes: M54.9 - Dorsalgia, unspecified; G89.29 - Other chronic pain Status: Chronic Plan: Patient with history of Chronic back pain. Medications: * Tyelnol 650mg q4hr PO PRN Pain 1-5. * Tramadol 50mg q8h PO PRN for Pain 6-10. (9) Depression ICD Codes: F32.9 - Major depressive disorder, single episode, unspecified Status: Chronic Plan: Patient with history of depression. Medications: * Continue home Sertraline 100mg PO HS. Consults: * Soc Analyst. * Palliative Care to assist with end-of-life decisions. (10) Nutrition, metabolism, and development symptoms ICD Codes: R63.8 - Other symptoms and signs concerning food and fluid intake Status: Acute Plan: Fluids: * Tolerating oral fluid. Diet: * NPO for EGD. Electrolytes: * Monitor and replete as necessary. DVT prophylaxis: * Chemical prophylaxis held for GI bleed. Will re-address pending EGD. (Sejal Miller MD R1) Problem List: (1) Anemia ICD Codes: D64.9 - Anemia, unspecified Status: Acute Plan: On admission, patient found to have H/H 7.5/23.7 with MCV of 74.6. s/p 2 units PRBC. Post-transfusion H/H 9.0/27.7. Labs: * PT 10.6, INR 1.0, PTT 24.3. * Iron profile: Iron 14, TIBC 469, TIBC 3.0. Microbiology: * Hemoccult positive. Medications: * Ferrous Sulfate 325mg PO daily. Consults: * GI: EGD today. Patient refusing colonoscopy. Recommendations to follow. (2) Dementia ICD Codes: F03.90 - Dementia Status: Chronic Plan: Patient with history of Alzheimer's Dementia per [facility] nursing staff. POA unknown per patient, but does list a son, who he is semi-estranged from. Offered to reach out to him, patient declined. Patient to be Full Code as we are unable to trust his full decision-making capabilities at this time. (3) Malignancies ICD Codes: C80.1 - Malignant (primary) neoplasm, unspecified Status: Chronic Plan: Per chart review, patient with history of prostate and pancreatic tail malignancies. Patient reports he was previously on "hormone therapy" for prostate cancer. Patient refusing oncology workup and chemotherapy treatment of malignancies currently. 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 Medications: * Continue oxybutynin 5 mg PO daily. (5) Diabetes mellitus ICD Codes: E11.9 - Type 2 diabetes mellitus without complications Status: Resolved Plan: Patient with history of type 2 diabetes mellitus per fpc, however no reported medications. Labs on admission: * Glucose 120. * Hemoglobin A1c 5.8. * Lipid profile wnl. (6) HTN (hypertension) ICD Codes: I10 - Essential (primary) hypertension Status: Chronic Plan: Patient with history of Hypertension. Medications: * Continue home Atenolol 25mg PO daily, Amlodipine 10mg PO daily. (7) Hyperlipidemia ICD Codes: E78.5 - Hyperlipidemia, unspecified Status: Chronic Plan: Patient with history of hyperlipidemia. Lipid profile wnl. Medications: * Home statin not available, Pravastatin 20mg HS ordered as alternative. (8) Chronic back pain ICD Codes: M54.9 - Dorsalgia, unspecified; G89.29 - Other chronic pain Status: Chronic Plan: Patient with history of Chronic back pain. Medications: * Tyelnol 650mg q4hr PO PRN Pain 1-5. * Tramadol 50mg q8h PO PRN for Pain 6-10. (9) Depression ICD Codes: F32.9 - Major depressive disorder, single episode, unspecified Status: Chronic Plan: Patient with history of depression. Medications: * Continue home Sertraline 100mg PO HS. Consults: * Soc Analyst. * Palliative Care to assist with end-of-life decisions. (10) Nutrition, metabolism, and development symptoms ICD Codes: R63.8 - Other symptoms and signs concerning food and fluid intake Status: Acute Plan: Fluids: * Tolerating oral fluid. Diet: * NPO for EGD. Electrolytes: * Monitor and replete as necessary. DVT prophylaxis: * Chemical prophylaxis held for GI bleed. Will re-address pending EGD. See the residents documentation for details. I saw and evaluated the patient regarding the [place] portions of this evaluation and agree with the residents findings and plans as written. Parts of this note were created using [employer] voice recognition software program. While efforts were made to correct any mistakes made by this software, some mistakes, errors, and omissions may remain in the final note that were not caught when the note was originally created. Plan of care was discussed and agreed upon with the patient as specifically documented in the above note. An opportunity to ask questions with explanation was provided. Patient voiced understanding on all information reviewed and discussed. (Deon Ornelas MD) Problem Qualifiers (1) Anemia: Qualified Codes: D64.9 - Anemia, unspecified (2) Dementia: Qualified Codes: G30.9 - Alzheimer's disease, unspecified; F02.80 - Dementia in other diseases classified elsewhere without behavioral disturbance (3) Diabetes mellitus: Qualified Codes: E11.8 - Type 2 diabetes mellitus with unspecified complications (4) HTN (hypertension): Qualified Codes: I10 - Essential (primary) hypertension (5) Hyperlipidemia: Qualified Codes: E78.5 - Hyperlipidemia, unspecified (6) Chronic back pain: Qualified Codes: M54.5 - Low back pain; G89.29 - Other chronic pain (7) Depression: Qualified Codes: F33.2 - Major depressive disorder, recurrent severe without psychotic features Sejal Miller MD R1 Jul 27, 2017 14:11 Deon Ornelas MD Jul 29, 2017 11:33
[2017-07-27] MEDS: traMADol HCL 50 MG TAB PO PRN (15:40)
[2017-07-27 16:00] VITALS: BP 160/77; PULSE 67; RESP 16; TEMP 97.7; O2SAT 95
[2017-07-27] MEDS: SERTRALINE HCL 100 MG TAB PO SCH (19:57)
[2017-07-27] MEDS: PRAVASTATIN SOD 20 MG TAB PO SCH (19:57)
[2017-07-27 20:00] VITALS: BP 128/62; PULSE 53; RESP 16; TEMP 97.6; O2SAT 98
[2017-07-27 20:58] VITALS: O2SAT 97
[2017-07-28] VITALS: BP 125/67; PULSE 59; RESP 16; TEMP 97.5; O2SAT 99
[2017-07-28] MEDS: PANTOPRAZOLE SODIUM 40 MG VIAL IV PUSH SCH ×2 (06:00→15:44)
[2017-07-28 06:22] LABS: HEMATOCRIT 29.1 % (39.0-51.0); HEMOGLOBIN 9.6 GM/DL (13.0-17.0); MEAN CELL VOLUME 75.6 FL (80.0-100.0); MEAN CORPUSCULAR HEMOGLOBIN 24.9 PG (27.0-34.0); MEAN CORPUSCULAR HGB CONC 32.9 % (32.0-36.0); MEAN PLATELET VOLUME 8.6 FL (7.0-11.0); PLATELET COUNT 221 TH/MM3 (150-450); RED BLOOD COUNT 3.85 MIL/MM3 (4.50-5.90); RED CELL DISTRIBUTION WIDTH 18.4 % (11.6-17.2); WHITE BLOOD COUNT 5.6 TH/MM3 (4.0-11.0)
[2017-07-28 06:46] LABS: BICARBONATE 25.7 MEQ/L (21.0-32.0); CALCIUM 8.8 MG/DL (8.5-10.1); CREATININE 1.15 MG/DL (0.60-1.30)
[2017-07-28 08:00] VITALS: BP 119/57; PULSE 52; RESP 17; TEMP 97.9; O2SAT 97
[2017-07-28] MEDS: SODIUM CHLORIDE 0.9% FLUSH 10 ML FLUSH IV FLUSH SCH (08:54)
[2017-07-28] MEDS: ATENOLOL 25 MG TAB PO SCH (08:59)
[2017-07-28] MEDS: FERROUS SULFATE 325 MG (65 MG ELEMENTAL IRON) TAB PO SCH (09:00)
[2017-07-28] MEDS: traMADol HCL 50 MG TAB PO PRN (09:00)
[2017-07-28] MEDS: GABAPENTIN 300 MG CAP PO SCH ×2 (09:00→11:59)
[2017-07-28] MEDS: OXYBUTYNIN CHLORIDE 5 MG TAB PO SCH (09:01)
[2017-07-28] MEDS ORDERED: INFLUENZA VIRUS VACCINE (QUADRIVALENT) 0.5 ML SYR IM ONE (10:00)
[2017-07-28] MEDS ORDERED: PNEUMOCOCCAL POLYVALENT INJ 25 MCG/0.5 ML SYR IM ONE (10:00)
[2017-07-28] MEDS ORDERED: PRAV20TA PO (10:43)
[2017-07-28] MEDS ORDERED: ZOLO100T PO (10:43)
[2017-07-28] MEDS ORDERED: NEUR300C PO (10:43)
[2017-07-28] MEDS ORDERED: FERR325T20 PO (10:43)
[2017-07-28] MEDS ORDERED: OXYB5TAB8 PO (10:43)
--- NOTE | 2017-07-28 10:46 | HHI.DCPOC ---
Discharge Care Plan Diagnosis: (1) GI bleed (2) Anemia (3) Malignancies (4) Dementia (5) Depression (6) Hyperlipidemia (7) Bladder dysfunction (8) HTN (hypertension) (9) Chronic back pain Goals to Promote Your Health * To prevent worsening of your condition and complications * To maintain your health at the optimal level Directions to Meet Your Goals Take your medications as prescribed Follow your dietary instruction Follow activity as directed Keep your appointments as scheduled Take your immunizations and boosters as scheduled If your symptoms worsen call your PCP, if no PCP go to Urgent Care Center or Emergency Room Smoking is Dangerous to Your Health. Avoid second hand smoke Call the 24-hour hour crisis hotline for domestic abuse at Sejal Miller MD R1 Jul 28, 2017 10:46
--- NOTE | 2017-07-28 10:48 | HHI.FPPN ---
Subjective Remarks Patient was seen and evaluated this morning. He appears more positive and relaxed than yesterday. He reports feeling well. Patient denies chest and abdominal pain, heart palpitations, shortness of breath, nausea/vomiting, diarrhea and constipation. All questions were answered. (Sejal Miller MD R1) Objective Vitals Vital Signs Date Time Temp Pulse Resp B/P (MAP) Pulse Ox O2 Delivery O2 Flow Rate FiO2 07/28/17 08:00 97.9 52 17 119/57 (77) 97 07/28/17 00:00 97.5 59 16 125/67 (86) 99 07/27/17 20:58 97 21 07/27/17 20:00 97.6 53 16 128/62 (84) 98 07/27/17 16:00 97.7 67 16 160/77 (104) 95 07/27/17 13:56 49 19 127/69 (88) 99 07/27/17 13:41 98.4 47 20 126/70 (88) 97 I/O 07/27/17 07/27/17 07/27/17 07/28/17 07/28/17 07/28/17 07:00 15:00 23:00 07:00 15:00 23:00 Intake Total 100 ml 240 ml 240 ml Output Total 150 ml Balance -50 ml 240 ml 240 ml Intake Oral 240 ml 240 ml Other 100 ml Output Urine Total 150 ml # Voids 1 4 # Bowel Movements 0 0 (Sejal Miller MD R1) Result Diagram: 07/28/17 0609 07/28/17 0609 Imaging Last Impressions Chest X-Ray 07/26/17 0000 Signed Impressions: CONCLUSION: 1. No acute cardiopulmonary abnormality is identified. There is stable linear scar at the right lung base. 2. Hiatal hernia. Objective Remarks GENERAL: Elderly male sitting in chair, in no acute distress. SKIN: Warm and dry. No rash. HEENT: Atraumatic, normocephalic with extraocular motions intact. No rhinorrhea. No visible lymphadenopathy or JVD appreciated. CARDIOVASCULAR: Bradycardic rate and regular rhythm without obvious murmurs, gallops, or rubs. RESPIRATORY: Clear to auscultation bilaterally with no crackles, wheezes, or rhonchi. No increased work of breathing. GASTROINTESTINAL: Positive bowel sounds. Abdomen soft, non-tender, nondistended. Large abdominal hernia appreciated along the midline with reducible bowel. MUSCULOSKELETAL: No cyanosis or edema. No calf tenderness. NEURO/PSYCH: Neurological exam afocal. Patient is awake and alert. Procedures EGD 07/27. Medications and IVs Current Medications Medications (Trade) Dose Ordered Sig/Tamela Route Start Time Stop Time Status Last Admin (NS Flush) 2 ml UNSCH PRN IV FLUSH 07/26/17 12:30 07/27/17 03:56 (NS Flush) 2 ml BID IV FLUSH 07/26/17 21:00 07/28/17 08:54 (Zofran Odt) 4 mg Q6H PRN PO 07/26/17 13:00 07/26/17 16:55 (Tylenol) 650 mg Q4H PRN PO 07/26/17 12:30 (Benadryl) 25 mg Q4H PRN PO 07/26/17 12:30 (Ferrous Sulfate) 325 mg DAILY PO 07/26/17 13:00 07/28/17 09:00 (Tenormin) 25 mg DAILY PO 07/27/17 09:00 07/28/17 08:59 (Norvasc) 10 mg DAILY PO 07/27/17 09:00 07/28/17 09:00 (Pravachol) 20 mg HS PO 07/26/17 21:00 07/27/17 19:57 (Zoloft) 100 mg HS PO 07/26/17 21:00 07/27/17 19:57 (Neurontin) 600 mg TID PO 07/26/17 18:00 07/28/17 09:00 (Ditropan) 5 mg DAILY PO 07/27/17 09:00 07/28/17 09:01 (Ultram) 50 mg Q8H PRN PO 07/26/17 14:30 07/28/17 09:00 (Tylenol) 650 mg Q4H PRN PO 07/26/17 14:30 (Catapres) 0.1 mg Q6H PRN PO 07/26/17 14:45 (Duoneb Neb) 1 ampule Q6HR NEB PRN NEB 07/26/17 14:45 (Protonix Inj) 40 mg Q12H IV PUSH 07/26/17 16:00 07/28/17 06:00 Lactated Ringer's 1,000 ml @ 30 mls/hr Q24H PRN IV 07/27/17 06:30 07/30/17 06:29 Sodium Chloride 500 ml @ 30 mls/hr [id number] PRN IV 07/27/17 06:30 07/30/17 06:29 (Betadine 5% Antisepsis Kit) 1 applic [employer] PRN EACH NARE 07/27/17 06:30 07/30/17 06:29 (Chlorhexidine 2% Cloth) 3 pack [employer] PRN TOPICAL 07/27/17 06:30 07/30/17 06:29 (Sejal Miller MD R1) Urinary Catheter: No (Sejal Miller MD R1) Vascular Central Line Catheter: No (Sejal Miller MD R1) A/P Assessment and Plan Patient is a 77-year-old male with history of Alzheimer's dementia and multiple malignancies presenting with anemia likely secondary to GI bleeding. Discharge Planning Likely today. (Sejal Miller MD R1) Problem List: (1) Anemia ICD Codes: D64.9 - Anemia, unspecified Status: Acute Plan: On admission, patient found to have H/H 7.5/23.7 with MCV of 74.6. s/p 2 units PRBC. Post-transfusion H/H 9.0/27.7. H/H stable. Labs: * PT 10.6, INR 1.0, PTT 24.3. * Iron profile: Iron 14, TIBC 469, TIBC 3.0. Microbiology: * Hemoccult positive. Medications: * Ferrous Sulfate 325mg PO daily. Consults: * GI: EGD results below. Await biopsy results. Biopsy results will not be ready for 7-10 days. If you don't hear from us in two weeks, call our office for biopsy results. Continue PPI. Colonoscopy, as outpatient, patient is refusing at this time. Results: * Large hiatal hernia. * There was erythematous gastritis in the gastric antrum; multiple biopsies were performed. * Normal duodenal mucosa in the duodenal bulb, 2nd part duodenum, and 3rd part duodenum * No evidence of active or recent bleeding. (2) Dementia ICD Codes: F03.90 - Dementia Status: Chronic Plan: Patient with history of Alzheimer's Dementia per [facility] nursing staff. POA unknown per patient, but does list a son, who he is semi-estranged from. Offered to reach out to him, patient declined. Patient to be Full Code as we are unable to trust his full decision-making capabilities at this time. (3) Malignancies ICD Codes: C80.1 - Malignant (primary) neoplasm, unspecified Status: Chronic Plan: Per chart review, patient with history of prostate and pancreatic tail malignancies. Patient reports he was previously on "hormone therapy" for prostate cancer. Patient refusing oncology workup and chemotherapy treatment of malignancies currently. 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 Medications: * Continue oxybutynin 5 mg PO daily. (5) Diabetes mellitus ICD Codes: E11.9 - Type 2 diabetes mellitus without complications Status: Resolved Plan: Patient with history of type 2 diabetes mellitus [facility], however no reported medications. Labs on admission: * Glucose 120. * Hemoglobin A1c 5.8. * Lipid profile wnl. (6) HTN (hypertension) ICD Codes: I10 - Essential (primary) hypertension Status: Chronic Plan: Patient with history of Hypertension. Medications: * Continue home Atenolol 25mg PO daily, Amlodipine 10mg PO daily. (7) Hyperlipidemia ICD Codes: E78.5 - Hyperlipidemia, unspecified Status: Chronic Plan: Patient with history of hyperlipidemia. Lipid profile wnl. Medications: * Home statin not available, Pravastatin 20mg HS ordered as alternative. (8) Chronic back pain ICD Codes: M54.9 - Dorsalgia, unspecified; G89.29 - Other chronic pain Status: Chronic Plan: Patient with history of Chronic back pain. Medications: * Tyelnol 650mg q4hr PO PRN Pain 1-5. * Tramadol 50mg q8h PO PRN for Pain 6-10. (9) Depression ICD Codes: F32.9 - Major depressive disorder, single episode, unspecified Status: Chronic Plan: Patient with history of depression. Medications: * Continue home Sertraline 100mg PO HS. Consults: * Fiberg[employer] Roller. * Palliative Care to assist with end-of-life decisions. (10) Nutrition, metabolism, and development symptoms ICD Codes: R63.8 - Other symptoms and signs concerning food and fluid intake Status: Acute Plan: Fluids: * Tolerating oral fluid. Diet: * Heart healthy diet. Electrolytes: * Monitor and replete as necessary. DVT prophylaxis: * Chemical prophylaxis held for GI bleed. (Sejal Miller MD R1) Problem List: (1) Anemia ICD Codes: D64.9 - Anemia, unspecified Status: Acute Plan: On admission, patient found to have H/H 7.5/23.7 with MCV of 74.6. s/p 2 units PRBC. Post-transfusion H/H 9.0/27.7. H/H stable. Labs: * PT 10.6, INR 1.0, PTT 24.3. * Iron profile: Iron 14, TIBC 469, TIBC 3.0. Microbiology: * Hemoccult positive. Medications: * Ferrous Sulfate 325mg PO daily. Consults: * GI: EGD results below. Await biopsy results. Biopsy results will not be ready for 7-10 days. If you don't hear from us in two weeks, call our office for biopsy results. Continue PPI. Colonoscopy, as outpatient, patient is refusing at this time. Results: * Large hiatal hernia. * There was erythematous gastritis in the gastric antrum; multiple biopsies were performed. * Normal duodenal mucosa in the duodenal bulb, 2nd part duodenum, and 3rd part duodenum * No evidence of active or recent bleeding. (2) Dementia ICD Codes: F03.90 - Dementia Status: Chronic Plan: Patient with history of Alzheimer's Dementia per [facility] nursing staff. POA unknown per patient, but does list a son, who he is semi-estranged from. Offered to reach out to him, patient declined. Patient to be Full Code as we are unable to trust his full decision-making capabilities at this time. (3) Malignancies ICD Codes: C80.1 - Malignant (primary) neoplasm, unspecified Status: Chronic Plan: Per chart review, patient with history of prostate and pancreatic tail malignancies. Patient reports he was previously on "hormone therapy" for prostate cancer. Patient refusing oncology workup and chemotherapy treatment of malignancies currently. 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 Medications: * Continue oxybutynin 5 mg PO daily. (5) Diabetes mellitus ICD Codes: E11.9 - Type 2 diabetes mellitus without complications Status: Resolved Plan: Patient with history of type 2 diabetes mellitus [facility], however no reported medications. Labs on admission: * Glucose 120. * Hemoglobin A1c 5.8. * Lipid profile wnl. (6) HTN (hypertension) ICD Codes: I10 - Essential (primary) hypertension Status: Chronic Plan: Patient with history of Hypertension. Medications: * Continue home Atenolol 25mg PO daily, Amlodipine 10mg PO daily. (7) Hyperlipidemia ICD Codes: E78.5 - Hyperlipidemia, unspecified Status: Chronic Plan: Patient with history of hyperlipidemia. Lipid profile wnl. Medications: * Home statin not available, Pravastatin 20mg HS ordered as alternative. (8) Chronic back pain ICD Codes: M54.9 - Dorsalgia, unspecified; G89.29 - Other chronic pain Status: Chronic Plan: Patient with history of Chronic back pain. Medications: * Tyelnol 650mg q4hr PO PRN Pain 1-5. * Tramadol 50mg q8h PO PRN for Pain 6-10. (9) Depression ICD Codes: F32.9 - Major depressive disorder, single episode, unspecified Status: Chronic Plan: Patient with history of depression. Medications: * Continue home Sertraline 100mg PO HS. Consults: * Fiberglass Roller. * Palliative Care to assist with end-of-life decisions. (10) Nutrition, metabolism, and development symptoms ICD Codes: R63.8 - Other symptoms and signs concerning food and fluid intake Status: Acute Plan: Fluids: * Tolerating oral fluid. Diet: * Heart healthy diet. Electrolytes: * Monitor and replete as necessary. DVT prophylaxis: * Chemical prophylaxis held for GI bleed. See the residents documentation for details. I saw and evaluated the patient regarding the [place] portions of this evaluation and agree with the residents findings and plans as written. Parts of this note were created using [employer] voice recognition software program. While efforts were made to correct any mistakes made by this software, some mistakes, errors, and omissions may remain in the final note that were not caught when the note was originally created. Plan of care was discussed and agreed upon with the patient as specifically documented in the above note. An opportunity to ask questions with explanation was provided. Patient voiced understanding on all information reviewed and discussed. (Deon Ornelas MD) Problem Qualifiers (1) Anemia: Qualified Codes: D64.9 - Anemia, unspecified (2) Dementia: Qualified Codes: G30.9 - Alzheimer's disease, unspecified; F02.80 - Dementia in other diseases classified elsewhere without behavioral disturbance (3) Diabetes mellitus: Qualified Codes: E11.8 - Type 2 diabetes mellitus with unspecified complications (4) HTN (hypertension): Qualified Codes: I10 - Essential (primary) hypertension (5) Hyperlipidemia: Qualified Codes: E78.5 - Hyperlipidemia, unspecified (6) Chronic back pain: Qualified Codes: M54.5 - Low back pain; G89.29 - Other chronic pain (7) Depression: Qualified Codes: F33.2 - Major depressive disorder, recurrent severe without psychotic features Sejal Miller MD R1 Jul 28, 2017 10:48 Deon Ornelas MD Jul 29, 2017 11:38
[2017-07-28 13:07] VITALS: BP 121/60; PULSE 68; RESP 16; TEMP 97.5; O2SAT 96
--- NOTE | 2017-07-30 14:16 | HHI.DS ---
Discharge Summary Admission Date Jul 26, 2017 at 14:32 Discharge Date: Jul 28, 2017 Admitting Diagnosis Anemia, suspected gi bleed, pancreatic neoplasm. (1) Anemia Diagnosis: Principal ICD Codes: D64.9 - Anemia, unspecified (2) GI bleed Diagnosis: Principal ICD Codes: K92.2 - Gastrointestinal hemorrhage, unspecified (3) Malignancies Diagnosis: Secondary ICD Codes: C80.1 - Malignant (primary) neoplasm, unspecified Status: Chronic (4) Bladder dysfunction Diagnosis: Secondary ICD Codes: N31.9 - Neuromuscular dysfunction of bladder, unspecified Status: Chronic (5) Dementia Diagnosis: Secondary ICD Codes: F03.90 - Dementia Status: Chronic (6) Diabetes mellitus Diagnosis: Secondary ICD Codes: E11.9 - Type 2 diabetes mellitus without complications Status: Resolved (7) HTN (hypertension) Diagnosis: Secondary ICD Codes: I10 - Essential (primary) hypertension Status: Chronic (8) Chronic back pain Diagnosis: Secondary ICD Codes: M54.9 - Dorsalgia, unspecified; G89.29 - Other chronic pain Status: Chronic (9) Depression Diagnosis: Secondary ICD Codes: F32.9 - Major depressive disorder, single episode, unspecified Status: Chronic Procedures EGD 07/27. Brief History Patient is a 77-year-old male with history of Alzheimer's dementia and multiple malignancies presenting with anemia likely secondary to GI bleeding. CBC/BMP: 07/28/17 0609 07/28/17 0609 Significant Findings Laboratory Tests Test 07/28/17 06:09 Red Blood Count 3.85 MIL/MM3 (4.50-5.90) Hemoglobin 9.6 GM/DL (13.0-17.0) Hematocrit 29.1 % (39.0-51.0) Mean Corpuscular Volume 75.6 FL (80.0-100.0) Mean Corpuscular Hemoglobin 24.9 PG (27.0-34.0) Red Cell Distribution Width 18.4 % (11.6-17.2) Blood Urea Nitrogen 29 MG/DL (7-18) Chloride Level 108 MEQ/L (98-107) Estimat Glomerular Filtration Rate 62 ML/MIN (>89) Imaging Last Impressions Chest X-Ray 07/26/17 0000 Signed Impressions: CONCLUSION: 1. No acute cardiopulmonary abnormality is identified. There is stable linear scar at the right lung base. 2. Hiatal hernia. PE at Discharge GENERAL: Elderly male sitting in chair, in no acute distress. SKIN: Warm and dry. No rash. HEENT: Atraumatic, normocephalic with extraocular motions intact. No rhinorrhea. No visible lymphadenopathy or JVD appreciated. CARDIOVASCULAR: Bradycardic rate and regular rhythm without obvious murmurs, gallops, or rubs. RESPIRATORY: Clear to auscultation bilaterally with no crackles, wheezes, or rhonchi. No increased work of breathing. GASTROINTESTINAL: Positive bowel sounds. Abdomen soft, non-tender, nondistended. Large abdominal hernia appreciated along the midline with reducible bowel. MUSCULOSKELETAL: No cyanosis or edema. No calf tenderness. NEURO/PSYCH: Neurological exam afocal. Patient is awake and alert. Hospital Course Anemia On admission, patient found to have H/H 7.5/23.7 with MCV of 74.6. s/p 2 units PRBC. Post-transfusion H/H 9.0/27.7. H/H stable. Labs: * PT 10.6, INR 1.0, PTT 24.3. * Iron profile: Iron 14, TIBC 469, TIBC 3.0. Microbiology: * Hemoccult positive. Medications: * Ferrous Sulfate 325mg PO daily. Consults: * GI: EGD results below. Await biopsy results. Biopsy results will not be ready for 7-10 days. If you don't hear from us in two weeks, call our office for biopsy results. Continue PPI. Colonoscopy, as outpatient, patient is refusing at this time. Results: * Large hiatal hernia. * There was erythematous gastritis in the gastric antrum; multiple biopsies were performed. * Normal duodenal mucosa in the duodenal bulb, 2nd part duodenum, and 3rd part duodenum * No evidence of active or recent bleeding. Malignancies Per chart review, patient with history of prostate and pancreatic tail malignancies. Patient reports he was previously on "hormone therapy" for prostate cancer. Patient refusing oncology workup and chemotherapy treatment of malignancies currently. Dementia Patient with history of Alzheimer's Dementia per [facility] nursing staff. POA unknown per patient, but does list a son, who he is semi-estranged from. Offered to reach out to him, patient declined. 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 Medications: * Oxybutynin 5 mg PO daily. Diabetes mellitus Patient with history of type 2 diabetes mellitus [facility], however no reported medications. Labs on admission: * Glucose 120. * Hemoglobin A1c 5.8. * Lipid profile wnl. HTN (hypertension) Patient with history of Hypertension. Medications: * Atenolol 25mg PO daily, Amlodipine 10mg PO daily. Hyperlipidemia Patient with history of hyperlipidemia. Lipid profile wnl. Medications: * Home statin not available, Pravastatin 20mg HS ordered as alternative. Chronic back pain Patient with history of Chronic back pain. Medications: * Tyelnol 650mg q4hr PO PRN Pain 1-5. * Tramadol 50mg q8h PO PRN for Pain 6-10. Depression Patient with history of depression. Medications: * Continue home Sertraline 100mg PO HS. Pt Condition on Discharge: Stable Discharge Disposition: Discharge to SNF Discharge Instructions DIET: Follow Instructions for: As Tolerated, No Restrictions Activities you can perform: Regular-No Restrictions Follow up Referrals: GI/[facility]S Colonoscopy - 1 Week with Lauren Diaz PCP Follow-up - 1 Week New Medications: Ferrous Sulfate (Ferosul) 325 Mg (65 Mg Iron) Tablet 325 MG PO DAILY, #30 TAB 3 Refills Gabapentin (Neurontin) 300 Mg Cap 600 MG PO TID, #90 CAP Oxybutynin (Ditropan) 5 Mg Tab 5 MG PO DAILY, #30 TAB Pravastatin (Pravachol) 20 Mg Tab 20 MG PO HS, #30 TAB Sertraline (Zoloft) 100 Mg Tab 100 MG PO HS, #30 TAB Continued Medications: Amlodipine (Amlodipine) 10 Mg Tab 10 MG PO DAILY for Blood Pressure Management, #30 TAB 0 Refills Atenolol (Atenolol) 25 Mg Tab 25 MG PO DAILY for Blood Pressure Management, #30 TAB Omeprazole (Omeprazole) 40 Mg Cap 40 MG PO BID, #30 CAP 0 Refills Tramadol (Tramadol) 50 Mg Tab 50 MG PO QID, TAB 0 Refills Discontinued Medications: Glimepiride (Glimepiride) 1 Mg Tab 1 MG PO DAILY for Blood Sugar Management, #30 TAB 0 Refills Take with breakfast or first main meal Meloxicam (Meloxicam) 15 Mg Tab 15 MG PO DAILY for Arthritis Pain, #30 TAB 0 Refills Sejal Mliler MD R1 Jul 30, 2017 14:16
== END 2017-07-28 16:49 | DRG 812 ==
LOC: NEPC 09:25 → NEDA 12:20 → NEPFCDU 13:14 → OBSVTOIN 14:32 → N07B 07-27 15:31
PROVIDERS: ADMIT Family Medicine; ATTEND Family Medicine
PROC: 30233N1 Transfusion of Nonautologous Red Blood Cells into Peripheral Vein, Percutaneous Approach (ICD-10-PCS; 2017-07-26)
PROC: 0DB78ZX Excision of Stomach, Pylorus, Via Natural or Artificial Opening Endoscopic, Diagnostic (ICD-10-PCS; principal; 2017-07-27 13:25)
DX: D50.0 Iron deficiency anemia secondary to blood loss (chronic) (principal); G30.9 Alzheimer's disease, unspecified; E11.9 Type 2 diabetes mellitus without complications; N31.9 Neuromuscular dysfunction of bladder, unspecified; F02.80 Dementia in other diseases classified elsewhere, unspecified severity, without behavioral disturbance, psychotic disturbance, mood disturbance, and anxiety; I10 Essential (primary) hypertension; D64.9 Anemia, unspecified; K29.70 Gastritis, unspecified, without bleeding; E78.5 Hyperlipidemia, unspecified; K44.9 Diaphragmatic hernia without obstruction or gangrene; F32.9 Major depressive disorder, single episode, unspecified; G89.29 Other chronic pain; M54.9 Dorsalgia, unspecified; Z91.013 Allergy to seafood; Z91.018 Allergy to other foods; Z85.46 Personal history of malignant neoplasm of prostate
CPT/HCPCS: 36430; 71045; 80048; 80053; 80061; 81001; 83036; 83540; 83550; 83690; 84484; 85014; 85018; 85025; 85027; 85610; 85730; 86850; 86900; 86901; 86920; 88305; 88312; 90732; 93005; C9113; G8987-GP; G8988-GP; J1940; J2370; J7050; P9016